=== PATIENT | male | born 1985 | race Caucasian/White ===

== ENCOUNTER 2018-09-10 20:32 | Emergency (ER) | payer OTHER ==
[2018-09-10 20:39] VITALS: BP 107/73; PULSE 78; TEMP 98.2; BMI 29.9
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
== END 2018-09-10 22:05 | disposition home or self-care (01) ==
LOC: JERFT 20:32
DX: S39.011A Strain of muscle, fascia and tendon of abdomen, initial encounter (principal); S16.1XXA Strain of muscle, fascia and tendon at neck level, initial encounter; V49.49XA Driver injured in collision with other motor vehicles in traffic accident, initial encounter; Y92.410 Unspecified street and highway as the place of occurrence of the external cause; Y93.89 Activity, other specified; Y99.8 Other external cause status
CPT/HCPCS: 99281-25